=== PATIENT | female | born 1945 | race Caucasian/White ===

== ENCOUNTER 2016-05-31 20:00 | Inpatient (IN) | payer MEDICARE, OTHER ==
[~2016-05-31] VITALS: Ht 152.4 cm; Wt 58.0 kg
[2016-05-31] MEDS ORDERED: SOD CHLORIDE 0.9% 500 ML IV STA (20:53)
[2016-05-31 21:30] LABS: ADD SCAN DIFF NO
[2016-05-31 21:32] LABS: BASOPHILS % 0.3 % (0.0-2.0); EOSINOPHILS # 0.1 10^3/ul (0.0-0.5); EOSINOPHILS % 0.9 % (0.0-7.0); HEMATOCRIT 30.7 % (37.0-47.0); HEMOGLOBIN 9.9 g/dl (12.0-16.0); LYMPHOCYTES # 1.3 10^3/ul (0.8-2.9); LYMPHOCYTES % 17.8 % (15.0-51.0); MEAN CORPUSCULAR HEMOGLOBIN 25.5 pg (29.0-33.0); MEAN CORPUSCULAR HGB CONC 32.2 g/dl (32.0-37.0); MEAN CORPUSCULAR VOLUME 79.1 fl (82.0-101.0); MEAN PLATELET VOLUME 9.6 fl (7.4-10.4); MONOCYTE # 0.5 10^3/ul (0.3-0.9); MONOCYTES % 6.9 % (0.0-11.0); NEUTROPHIL # 5.4 10^3/ul (1.6-7.5); NEUTROPHILS % 73.4 % (39.0-77.0); PLATELET COUNT 320 10^3/UL (140-415); RED BLOOD COUNT 3.88 10^6/ul (4.20-5.40); RED CELL DISTRIBUTION WIDTH 14.3 % (11.5-14.5); WHITE BLOOD COUNT 7.4 10^3/ul (4.8-10.8)
--- NOTE | 2016-05-31 21:33 | ERD ---
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 The patient presents with dysuria urgency and frequency. She also describes abdominal cramping for approximately greater than 1 month. She states that she was diagnosed with diverticulitis and [place] but not given antibiotics. She has been given a stool softener. Patient describes persistence of symptoms. She denies any fevers, no hematemesis, no melena. Abdominal cramping is moderate and persistent. She still describes constipation. ROS All systems reviewed and are negative except as per history of present illness. Medications Home Meds Active Scripts Magnesium Citrate* (Magnesium Citrate*) 296 Ml Solution, 296 ML PO ONCE Y for CONSTIPATION, #1 BOTTLE Prov:ODETTE DAMON MD 05/31/16 Cephalexin* (Keflex*) 500 Mg Capsule, 500 MG PO QID for 7 Days, CAP Prov:ODETTE DAMON MD 05/31/16 PMhx/Soc Medical and Surgical Hx: pt denies Medical Hx, pt denies Surgical Hx History of Surgery: No Anesthesia Reaction: No Hx Neurological Disorder: No Hx Respiratory Disorders: No Hx Alcohol Use: No Hx Substance Use: No Hx Tobacco Use: No Smoking Status: Never smoker FmHx Family History: No diabetes Physical Exam Vitals Vital Signs Date Time Temp Pulse Resp B/P Pulse Ox O2 Delivery O2 Flow Rate FiO2 05/31/16 20:15 99.8 88 18 149/68 100 Physical Exam General: Well developed, well nourished, no acute distress Head: Normocephalic, atraumatic. Eyes: Pupils equally reactive, EOM intact ENT: Moist mucous membranes Neck: Supple, no lymphadenopathy Respiratory: Lungs clear bilaterally, no distress Cardiovascular: RRR, no murmurs, rubs, or gallops Abdominal: Soft, left lower quadrant tenderness to palpation without rebound or guarding, no pulsatile mass : Deferred MSK: No edema, no unilateral swelling, 5/5 strength Neurologic: Alert and oriented, moving all extremities, normal speech, no focal weakness, no cerebellar signs Skin: No rash Psych: Normal mood Result Diagram: 05/31/16210605/31/162106 Results 24 hrs Laboratory Tests Test 05/31/16 21:07 05/31/16 21:09 White Blood Count 7.410^3/ul Red Blood Count 3.8810^6/ul Hemoglobin 9.9g/dl Hematocrit 30.7% Mean Corpuscular Volume 79.1fl Mean Corpuscular Hemoglobin 25.5pg Mean Corpuscular Hemoglobin Concent 32.2g/dl Red Cell Distribution Width 14.3% Platelet Count 92239^3/UL Mean Platelet Volume 9.6fl Neutrophils % 73.4% Lymphocytes % 17.8% Monocytes % 6.9% Eosinophils % 0.9% Basophils % 0.3% Nucleated Red Blood Cells % 0.0/100WBC Neutrophils # 5.410^3/ul Lymphocytes # 1.310^3/ul Monocytes # 0.510^3/ul Eosinophils # 0.110^3/ul Basophils # 0.010^3/ul Nucleated Red Blood Cells # 0.010^3/ul Sodium Level 138mmol/L Potassium Level 3.9mmol/L Chloride Level 100mmol/L Carbon Dioxide Level 25mmol/L Anion Gap 17 Blood Urea Nitrogen 13mg/dl Creatinine 0.63mg/dl Glucose Level 248mg/dl Calcium Level 8.9mg/dl Total Bilirubin 0.2mg/dl Direct Bilirubin 0.00mg/dl Indirect Bilirubin 0.2mg/dl Aspartate Amino Transf (AST/SGOT) 15IU/L Alanine Aminotransferase (ALT/SGPT) 16IU/L Alkaline Phosphatase 127IU/L Total Protein 8.0g/dl Albumin 3.8g/dl Globulin 4.20g/dl Albumin/Globulin Ratio 0.90 Lipase 116U/L Urine Color LT. YELLOW Urine Clarity CLEAR Urine pH 6.0 Urine Specific [place] <=1.005 Urine Ketones NEGATIVE Urine Nitrite NEGATIVE Urine Bilirubin NEGATIVE Urine Urobilinogen 0.2 E.U./dL Urine Leukocyte Esterase 1+ Urine Microscopic RBC 0-2/HPF Urine Microscopic WBC 2-5/HPF Urine Squamous Epithelial Cells RARE Urine Bacteria RARE Urine Hemoglobin NEGATIVE Urine Glucose NEGATIVE% Urine Total Protein NEGATIVE Current Medications Medications (Trade) Dose Ordered Sig/Staci Route PRN Reason Start Time Stop Time Status Last Admin Dose Admin Sodium Chloride (NS) 500 ml @ 500 mls/hr Q1H STAT IV 05/31/16 20:53 05/31/16 21:52 DC 05/31/16 21:09 Procedures/MDM EKG, MONITORS, & DIAGNOSTIC IMAGING: CT abdomen and pelvis: Pending LAB INTERPRETATION: Anemia, no significant leukocytosis, borderline UTI MEDICAL DECISION MAKING: The patient presents with signs and symptoms consistent with UTI and possible constipation. However her clinical exam does have evidence of left lower quadrant tenderness with concern for possible diverticulitis that has not been treated with antibiotics. Patient given her age would benefit from CT imaging of the abdomen and pelvis to rule out acute process. Low concern for perforation or abscess. ER COURSE: Borderline urinary tract infection. Given the patient's symptoms initiation of Keflex would be reasonable. The patient's CT imaging is pending at the time of signout. No significant leukocytosis. I doubt acute diverticulitis though not impossible. The patient will be endorsed to the oncoming provider. If negative CT the patient can be discharged with Keflex. If the CT shows evidence of uncomplicated diverticulitis and initiation of ciprofloxacin and Flagyl will be reasonable. I kept the patient and/or family informed of laboratory and diagnostic imaging results throughout the emergency room course. DISPOSITION PLAN: Pending CT imaging. We discussed follow up with the patient's primary care doctor within 24 to 48 hours as needed. We also discussed return to the emergency room for worsening symptoms or worsening condition. Outpatient referral: [None required] Discharge Medications: Keflex, magnesium citrate Departure Diagnosis: Primary Impression: UTI (urinary tract infection) Urinary tract infection type: acute cystitis Hematuria presence: without hematuria Qualified Code: N30.00 - Acute cystitis without hematuria Additional Impressions: Generalized abdominal pain Constipation Constipation type: unspecified constipation type Qualified Code: K59.00 - Constipation, unspecified constipation type Condition: Stable ODETTE DAMON MD May 31, 2016 21:33
[2016-05-31 21:35] LABS: ADD UMIC YES; URINE BILIRUBIN (Dip) NEGATIVE (NEGATIVE); URINE BLOOD (Dip) NEGATIVE (NEGATIVE); URINE COLOR LT. YELLOW (YELLOW); URINE GLUCOSE (Dip) NEGATIVE (NEGATIVE); URINE KETONES (Dip) NEGATIVE (NEGATIVE); URINE LEUKOCYTE ESTERASE (Dip) 1+ (NEGATIVE); URINE NITRITE (Dip) NEGATIVE (NEGATIVE); URINE TOTAL PROTEIN (Dip) NEGATIVE (NEGATIVE); URINE UROBILINOGEN (Dip) 0.2 E.U./dL (0.1-1.0)
[2016-05-31 21:47] LABS: BACTERIA,URINE RARE; SQUAMOUS EPITHELIAL CELL,UR RARE; URINE RBCS 0-2 /HPF (0)
[2016-05-31 21:48] LABS: ALBUMIN 3.8 g/dl (3.3-4.9)
[2016-05-31 21:49] LABS: POTASSIUM 3.9 mmol/L (3.5-5.1)
[2016-05-31 21:51] LABS: ALBUMIN/GLOBULIN RATIO 0.9; BILIRUBIN,INDIRECT 0.2 mg/dl (0-1.1); BILIRUBIN,TOTAL 0.2 mg/dl (0.2-1.3); CREATININE 0.63 mg/dl (0.44-1.00)
[2016-05-31 21:52] LABS: CALCIUM 8.9 mg/dl (8.4-10.2)
[2016-05-31] MEDS ORDERED: CEPH-443 PO (22:39)
[2016-05-31] MEDS ORDERED: MAGN296S40 PO (22:40)
[2016-06-01] MEDS ORDERED: morphine 2 MG INJ IV ONE (00:30)
--- NOTE | 2016-06-01 01:51 | EN ---
Date/Time of Note Date/Time of Note DATE: 06/01/16 TIME: 01:45 ER Progress Note After calling Radiology for reading twice, finally was able to get CT scan results at 0145, The CT scan abdomen and pelvis was reviewed, patient has a perforated sigmoid colon diverticulitis, with this time I spoke to my attending physician, Dr. Coe, will admit patient to the hospital for further management and treatment, possible surgical intervention. At this time, patient is stable, pain is controlled. Patient will be transferred to ER [address] abd and Pelvis without Contrast: Read by , radiology Impression: #1. Perforated sigmoid colon diverticulitis. There is a 4.9 cm irregular fluid and air collection abutting the superior sigmoid colon in the inflamed region, extending superiorly into the lower abdominal retroperitoneum, suspicion for an abscess #2 moderate sigmoid colon diverticulosis. #3 mild to moderate bilateral hydroureteronephrosis down to the pelvic inlet,, where there are diffuse inflammatory changes adjacent to the ureters. No obstructing stone or mass is identified. #3 nonspecific 2.3 cm soft tissue density structure at the esophagogastric junction. It isn't clear if this represents a small fluid- filled hiatal hernia, the sequela of prior Mona fundoplication, or distal esophageal mass. This could be rather further evaluated with esophagoscopy or a fluoroscopic esophagram, as clinically warranted. LORE QUINONEZ NP Jun 01, 2016 01:51
[2016-06-01] MEDS ORDERED: metroNIDAZOLE 500 MG/NS (PMX) 100 ML IVPB STA (02:12)
[2016-06-01] MEDS ORDERED: PIPER-TAZO 3.375 GM IV (PMX) 100 ML IVPB STA (02:12)
[2016-06-01 02:56] VITALS: TEMP 99.6
[2016-06-01 03:47] VITALS: Ht 152.4 cm; Wt 58.0 kg
[2016-06-01 03:56] VITALS: BP 147/68; RESP 18
[2016-06-01] MEDS ORDERED: ONDANSETRON 4 MG INJ IV PRN (04:30)
[2016-06-01] MEDS ORDERED: morphine 4 MG/ML VIAL IV PRN (04:30)
[2016-06-01] MEDS ORDERED: DEXTROSE 5%-0.45% NACL 1,000 ML IV SCH (04:30)
[2016-06-01] MEDS: PIPER-TAZO 3.375 GM IV (PMX) 100 ML IVPB SCH ×4 (05:36→23:21)
--- NOTE | 2016-06-01 06:46 | HP ---
DATE OF ADMISSION: 06/01/2016 HISTORY OF PRESENT ILLNESS: The patient is a 70-year-old female with a history of left breast cance r status post mastectomy and chemo 25 years ago who presented to the emergency department with painf ul urination, constipation, and abdominal pain. Her abdominal pain has been going on for over 3 wee ks. Her urinary symptoms have been going on for 3 to 4 days. She was diagnosed with diverticulitis in [place], but she was not treated with antibiotics. When she presented to the ER, blood pressure was 149/68, heart rate 88, respiratory rate 18, tempera ture 99.8, oxygen saturation 100% on room air. Laboratory value shows hemoglobin of 9.9 with an MCV of 79, glucose 248. Otherwise, CBC and CMP within acceptable range. CT abdomen and pelvis showed perforated sigmoid colonic diverticulitis and irregular fluid and/or air collection suspicious for a bscess. Also noted was nonspecific 2.3 cm soft tissue density structure at esophagogastric junction representing either small fluid-filled hiatal hernia, sequelae of prior Mona fundoplication, or d istal esophageal mass. The on-call surgeon, Dr. Fowler, is aware of the patient's perforated divert iculitis and abscess findings. REVIEW OF SYSTEMS: A 12-point review was performed and negative except as mentioned in HPI. PAST MEDICAL HISTORY: As per HPI. PAST SURGICAL HISTORY: As per HPI. SOCIAL HISTORY: Denied a history of tobacco, alcohol, or illicit drug use. ALLERGIES: NO KNOWN DRUG ALLERGIES. HOME MEDICATIONS: 1. Keflex. 2. Magnesium citrate. PHYSICAL EXAMINATION: VITAL SIGNS: Stable. GENERAL: No acute distress, answering questions appropriately through homebound teacher. HEENT: No obvious head deformity. Pupils are reactive to light. Extraocular muscles intact. CARDIOVASCULAR: Regular rate and rhythm. No extra sounds. LUNGS: Clear. ABDOMEN: Soft. There is tenderness mainly in the left lower quadrant region. No rigidity. No maverick ound tenderness. EXTREMITIES: No edema. NEUROLOGIC: No focal deficits. LABORATORY DATA: Pertinent positives as mentioned above in the HPI. IMAGING: CT abdomen and pelvis with results as mentioned in the HPI. IMPRESSION: 1. Perforated sigmoid diverticulitis with abscess formation. 2. Abdominal pain, secondary to above. 3. Dysuria, likely secondary to urinary tract infection. 4. History of left breast carcinoma status post mastectomy and chemo. 5. Hyperglycemia, likely undiagnosed diabetes. 6. Microcytic anemia. We will evaluate for iron deficiency. 7. Nonspecific soft tissue density at the esophagogastric junction. PLAN: We will keep n.p.o. with IV fluid. She will be placed on Zosyn. We will follow up culture r esults. Her dysuria is likely secondary to urinary tract infection. At this point, the Zosyn will also address this. We will send urine culture. We will provide pain medication and antiemetics as needed. Currently, she is awaiting surgical evaluation. We will send A1c given presentation of hyp erglycemia. As far as the nonspecific density that was noted on the esophagogastric junction, we wi ll order esophagoscopy or fluoroscopic encephalogram as clinically warranted. We will check ferriti n and iron profile to work up microcytic anemia. We will not send FOBT at this time given the resul t if positive will be unreliable given her diverticulitis. Further workup and management per clinical course. Dictated By: ZAYNAB WILLIAM/ELFEGO Conf#: [id number] DID#: [id number]
--- NOTE | 2016-06-01 07:32 | RADRPT ---
PROCEDURE: CT Abdomen and Pelvis without contrast. CLINICAL INDICATION: Pelvic pain. TECHNIQUE: A CT scan of the abdomen and pelvis was performed without intravenous contrast. Min l and sagittal reformatted images were generated. Images were reviewed on a high-resolution PACS wor kstation. CTDIvol: 7.21 mGy. DLP: 373.54 mGy-cm. One or more of the following dose reduction techniques were used: - Automated exposure control. - Adjustment of the mA and/or kV according to patient size. - Use of iterative reconstruction technique. COMPARISON: None. FINDINGS: There is a calcified granuloma in the lingula. Evaluation of the abdominal and pelvic viscera is limited by the lack of oral and intravenous contra st. The liver is unremarkable. The gallbladder is normal in appearance. The common bile duct is not dila phillip. The spleen is not enlarged. No pancreatic lesion is identified and there is no pancreatic ducta l dilatation. The adrenal glands are unremarkable. The kidneys are normal in size. There is no perinephric fat stranding. There is mild to moderate germán ateral hydroureteronephrosis down to the pelvic inlet, where there are diffuse inflammatory changes adjacent to the ureters. No obstructing stone or mass is identified. There is a nonspecific 2.0 x 2.3 cm soft tissue density structure at the esophagogastric region. The small and large bowel are normal in caliber. There is moderate descending and sigmoid colon diverti culosis. There is wall thickening and extensive pericolonic inflamation along the mid sigmoid colon, consistent with diverticulitis. There is a 2.8 x 4.1 x 4.9 cm irregular fluid and air collection ab utting the superior sigmoid colon in the inflamed region, extending superiorly into the lower abdomi nal retroperitoneum, suspicious for an abscess. The appendix is normal. The urinary bladder is unremarkable. The pelvic organs are within normal limits. No lymphadenopathy is identified. No ascites is identified. There are minimal arterial calcificatio ns. No suspicious osseous lesion is idenitified. IMPRESSION: 1. Perforated sigmoid colon diverticulitis. There is a 4.9 cm irregular fluid and air collection a butting the superior sigmoid colon in the inflamed region, extending superiorly into the lower abdom inal retroperitoneum, suspicious for an abscess. 2. Moderate descending sigmoid colon diverticulosis. 3. Mild to moderate bilateral hydroureteronephrosis down to the pelvic inlet, where there are diffu se inflammatory changes adjacent to the ureters. No obstructing stone or mass is identified. 4. Nonspecific 2.3 cm soft tissue density structure at the esophagogastric junction. It is unclear if this represents a small fluid-filled hiatal hernia, the sequela of prior Mona fundoplication, or a distal esophageal mass. This could be further evaluated with esophagoscopy or a fluoroscopic e sophagram, as clinically warranted. RPTAT: HTAR .Anders Lopez MD, Date Time Electronically viewed and signed by .Anders Lopez MD, on 06/01/2016 01:13 .R/
[2016-06-01 08:00] LABS: ADD SCAN DIFF NO
[2016-06-01 08:05] LABS: BASOPHILS % 0.2 % (0.0-2.0); EOSINOPHILS % 0.7 % (0.0-7.0); HEMATOCRIT 29.4 % (37.0-47.0); HEMOGLOBIN 9.3 g/dl (12.0-16.0); LYMPHOCYTES # 0.9 10^3/ul (0.8-2.9); LYMPHOCYTES % 14.9 % (15.0-51.0); MEAN CORPUSCULAR HEMOGLOBIN 25.2 pg (29.0-33.0); MEAN CORPUSCULAR HGB CONC 31.6 g/dl (32.0-37.0); MEAN CORPUSCULAR VOLUME 79.7 fl (82.0-101.0); MEAN PLATELET VOLUME 9.4 fl (7.4-10.4); MONOCYTE # 0.4 10^3/ul (0.3-0.9); MONOCYTES % 6.7 % (0.0-11.0); NEUTROPHIL # 4.5 10^3/ul (1.6-7.5); PLATELET COUNT 255 10^3/UL (140-415); RED BLOOD COUNT 3.69 10^6/ul (4.20-5.40); RED CELL DISTRIBUTION WIDTH 14.2 % (11.5-14.5); WHITE BLOOD COUNT 5.8 10^3/ul (4.8-10.8)
[2016-06-01 08:29] LABS: ALBUMIN 3.1 g/dl (3.3-4.9); POTASSIUM 3.5 mmol/L (3.5-5.1)
[2016-06-01 08:31] LABS: BILIRUBIN,INDIRECT 0.5 mg/dl (0-1.1); BILIRUBIN,TOTAL 0.5 mg/dl (0.2-1.3); CREATININE 0.6 mg/dl (0.44-1.00)
[2016-06-01 08:32] LABS: ALBUMIN/GLOBULIN RATIO 0.86; CALCIUM 8.2 mg/dl (8.4-10.2); MAGNESIUM 1.5 mg/dl (1.7-2.5); PHOSPHORUS 4.2 mg/dl (2.5-4.9); TOTAL PROTEIN 6.7 g/dl (6.1-8.1)
[2016-06-01 08:36] LABS: IRON 16 ug/dl (35-150)
[2016-06-01 08:38] LABS: INR 1.16; PROTIME 14.9 Sec (12.2-14.2); PT RATIO 1.2
[2016-06-01 08:39] LABS: PARTIAL THROMBOPLASTIN TIME 32.9 Sec (25.0-35.0)
[2016-06-01 08:45] LABS: TOTAL IRON BINDING CAPACITY 287 ug/dl (241-421)
[2016-06-01 09:03] VITALS: BP 122/60; RESP 18
[2016-06-01] MEDS ORDERED: DEXTROSE 50% 50 ML SYRINGE IV PRN ×2 (11:30)
[2016-06-01] MEDS ORDERED: GLUCAGON 1 MG INJ IM PRN (11:30)
[2016-06-01] MEDS ORDERED: GLUCOSE GEL 15 GRAM TUBE BUCCAL PRN (11:30)
[2016-06-01] MEDS ORDERED: GLUCOSE GEL 15 GRAM TUBE PO PRN ×2 (11:30)
[2016-06-01] MEDS: POLYETHYLENE GLYCOL 17 GM PACKET PO SCH (11:33)
[2016-06-01] MEDS: SOD CHLORIDE 0.9% 1,000 ML IV SCH ×2 (11:34→19:00)
[2016-06-01] MEDS ORDERED: MAGNESIUM CITRATE 300 ML BTL PO ONE (12:00)
[2016-06-01] MEDS: INSULIN ASPART [NOVOLOG] 3 ML PEN SC SCH ×3 (13:00→20:51)
[2016-06-01] MEDS: SOD FERRIC GLUC COMPLX 125 MG in SOD CHLORIDE 0.9% 100 ML IVPB SCH (13:16)
[2016-06-01] MEDS: metFORMIN 500 MG TAB PO SCH (17:55)
[2016-06-01 19:00] VITALS: BP 122/58; RESP 18
[2016-06-01] MEDS: DOCUSATE SODIUM 100 MG CAP PO SCH (20:37)
[2016-06-01] MEDS ORDERED: ACETAMINOPHEN 325 MG TAB PO PRN (22:00)
[2016-06-01] MEDS: HYDROCODONE/APAP (5/325) TAB PO PRN (22:20)
[2016-06-02] MEDS: INSULIN ASPART [NOVOLOG] 3 ML PEN SC SCH ×6 (01:04→20:34)
[2016-06-02] MEDS: SOD CHLORIDE 0.9% 1,000 ML IV SCH ×3 (01:08→18:36)
--- NOTE | 2016-06-02 03:19 | CONS ---
DATE OF ADMISSION: 06/01/2016 DATE OF CONSULTATION: 06/01/2016 HISTORY OF PRESENT ILLNESS: Ms. Chiang is a 70-year-old female who came to the emergency room at [facility] last night with some abdominal pain. She has had abdominal pain for approximat freddie 2 to 3 days. She has a history of diverticulitis and has had 3 or 4 attacks in the past. She s aid she was diagnosed with diverticulitis in [place] but she was not treated with antibiotics. There was some concern for an abscess on the CT, and I was called for consultation. PAST MEDICAL HISTORY: Left breast CA. PAST SURGICAL HISTORY: She had a left breast mastectomy 25 years ago with chemotherapy. ALLERGIES: NO KNOWN DRUG ALLERGIES. HOME MEDICATIONS: 1. Keflex. 2. Mag citrate. PHYSICAL EXAMINATION: GENERAL: She is a well-nourished, well-developed female. VITAL SIGNS: She is afebrile. Vital signs stable. CHEST: Clear to auscultation bilaterally. HEART: Regular rhythm. ABDOMEN: Soft, nondistended with some right lower quadrant tenderness. LABORATORY DATA: Reveal a white count of 6, hematocrit of 30, platelets of 255. Sodium 137, potass ium 3.5, chloride 106, CO2 24, BUN and creatinine 10 and 0.6, and a glucose of 186. A CT of her abdomen and pelvis revealed perforated sigmoid diverticulitis with a 5 cm irregular flui d air collection along the superior sigmoid colon and inflamed region extending superiorly to the lo wer retroperitoneum, suspicious for abscess, moderate descending sigmoid colon diverticulosis, mild to moderate bilateral hydroureteronephrosis down to pelvic where there are diffuse inflammator y changes adjacent to the ureters. ASSESSMENT AND PLAN: Ms. Chiang is a 70-year-old female with inflammation in the lower pelvis, p ossibly related to perforated sigmoid diverticulitis. 1. The patient is afebrile with a normal white count with minimal abdominal pain. Recommend conser vative treatment for now. Would treat with IV antibiotics and possible ID consultation pertaining t o oral antibiotics. 2. Recommend surgery in 4 to 6 weeks once diverticulitis resolves. 3. Would advance diet as tolerated. 4. Recommend clears tomorrow and then advance as tolerated. 5. The patient does not have an ileus as she is passing flatus. 6. Discharge per medicine for infectious disease. 7. Please reconsult as necessary. Dictated By: ANNETTE PITTMAN/ELFEGO Conf#: [id number] DID#: [id number]
[2016-06-02] MEDS: PIPER-TAZO 3.375 GM IV (PMX) 100 ML IVPB SCH ×3 (05:09→18:37)
[2016-06-02 05:26] LABS: ADD SCAN DIFF NO
[2016-06-02 05:48] LABS: BASOPHILS % 0.2 % (0.0-2.0); EOSINOPHILS # 0.1 10^3/ul (0.0-0.5); EOSINOPHILS % 1.8 % (0.0-7.0); HEMATOCRIT 28.2 % (37.0-47.0); HEMOGLOBIN 8.8 g/dl (12.0-16.0); MEAN CORPUSCULAR HGB CONC 31.2 g/dl (32.0-37.0); MEAN CORPUSCULAR VOLUME 80.1 fl (82.0-101.0); MEAN PLATELET VOLUME 9.6 fl (7.4-10.4); MONOCYTE # 0.5 10^3/ul (0.3-0.9); MONOCYTES % 7.7 % (0.0-11.0); NEUTROPHIL # 4.4 10^3/ul (1.6-7.5); NEUTROPHILS % 73.8 % (39.0-77.0); PLATELET COUNT 268 10^3/UL (140-415); RED BLOOD COUNT 3.52 10^6/ul (4.20-5.40); RED CELL DISTRIBUTION WIDTH 14.6 % (11.5-14.5)
[2016-06-02 06:05] LABS: POTASSIUM 3.7 mmol/L (3.5-5.1)
[2016-06-02 06:08] LABS: CALCIUM 8.2 mg/dl (8.4-10.2); CREATININE 0.54 mg/dl (0.44-1.00)
[2016-06-02 06:09] LABS: CHOL/HDL RATIO 4.3 RATIO; MAGNESIUM 2.2 mg/dl (1.7-2.5)
[2016-06-02 06:33] LABS: THYROID STIMULATING HORMONE 1.5 MIU/L (0.465-4.680)
[2016-06-02 07:38] VITALS: BP 120/58; RESP 20
[2016-06-02] MEDS: DOCUSATE SODIUM 100 MG CAP PO SCH ×2 (08:38→20:30)
[2016-06-02] MEDS: metFORMIN 500 MG TAB PO SCH ×2 (08:38→17:41)
[2016-06-02] MEDS: POLYETHYLENE GLYCOL 17 GM PACKET PO SCH (08:38)
--- NOTE | 2016-06-02 11:26 | PN ---
Date/Time of Note Date/Time of Note DATE: 06/02/16 TIME: 11:19 Assessment/Plan VTE Prophylaxis VTE Prophylaxis Intervention: ambulation, SCD's Lines/Catheters IV Catheter Type (from Nrs): Peripheral IV Urinary Cath still in place: No Assessment/Plan Assessment/Plan 1. Perforated sigmoid diverticulitis with abscess formation: minimal per surgery / med mgt Patient has had recurrent diverticulitis approximately every 6 months for the last 4 years. 2. Abdominal pain, secondary to above: much improved 3. Dysuria, likely secondary to urinary tract infection: improved 4. History of left breast carcinoma status post mastectomy and chemo. 5. DM 2 : A1C 6.8 6. Microcytic anemia 2/2 iron deficiency 7. Nonspecific soft tissue density at the esophagogastric junction: asymptomatic PLAN: appreciate surgical input / continue med mgt advance diet to full liquid and continue abx continue fiber supplementation and stool softeners Resume home hypoglycemics Continue iron supplementation Needs outpt upper endoscopy when stable and possible surgery for recurrent diverticulitis continue supportive care PROPHYLAXIS: SCDs Subjective 24 Hr Interval Summary Free Text/Dictation Patient seen and examined. feels better, had good BM x 4 yesterday, tolerating CLD but is hesitant to advance diet Exam/Review of Systems Vital Signs Vitals Vital Signs Date Time Temp Pulse Resp B/P Pulse Ox O2 Delivery O2 Flow Rate FiO2 06/02/16 07:38 97.7 62 20 120/58 99 06/01/16 02:56 Room Air Intake and Output 06/01/16 06/01/16 06/02/16 15:00 23:00 07:00 Intake Total 2110 ml 440 ml Output Total 750 ml 980 ml Balance 1360 ml -540 ml Exam Constitutional: alert, oriented Psych: anxiety Head: normocephalic Eyes: PERRL ENMT: mucosa pink and moist Neck: supple Respiratory: clear to auscultation, normal air movement Cardiovascular: regular rate and rhythm, No murmurs/extra sounds Gastrointestinal: bowel sounds, non-tender, soft Extremities: No edema Neurological: nl mental status, nl speech Results Result Diagram: 06/02/16 0343 06/02/16 0343 Results 24 hrs Laboratory Tests Test 06/01/16 13:19 06/01/16 17:50 06/01/16 20:38 06/02/16 01:01 Bedside Glucose 160 144 150 187 Test 06/02/16 03:43 06/02/16 05:08 06/02/16 08:30 White Blood Count 6.0 Red Blood Count 3.52 L Hemoglobin 8.8 L Hematocrit 28.2 L Mean Corpuscular Volume 80.1 L Mean Corpuscular Hemoglobin 25.0 L Mean Corpuscular Hemoglobin Concent 31.2 L Red Cell Distribution Width 14.6 H Platelet Count 268 Mean Platelet Volume 9.6 Neutrophils % 73.8 Lymphocytes % 16.0 Monocytes % 7.7 Eosinophils % 1.8 Basophils % 0.2 Nucleated Red Blood Cells % 0.0 Neutrophils # 4.4 Lymphocytes # 1.0 Monocytes # 0.5 Eosinophils # 0.1 Basophils # 0.0 Nucleated Red Blood Cells # 0.0 Sodium Level 139 Potassium Level 3.7 Chloride Level 109 Carbon Dioxide Level 25 Anion Gap 9 Blood Urea Nitrogen 8 Creatinine 0.54 Glucose Level 133 # Calcium Level 8.2 L Magnesium Level 2.2 Triglycerides Level 105 Cholesterol Level 121 LDL Cholesterol, Calculated 72 HDL Cholesterol 28 L Cholesterol/HDL Ratio 4.3 Thyroid Stimulating Hormone (TSH) 1.500 Bedside Glucose 137 127 Medications Medications Current Medications Piperacillin Sod/ Tazobactam Sod (Zosyn 3.375gm/ 100 ml (Pmx)) 100 ml @ 200 mls /hr Q6 IVPB Last administered on 06/02/16 05:09; Admin Dose 200 MLS/HR; Start 06/01/16 at 06:00 Morphine Sulfate (morphine) 4 mg Q4H PRN IV PAIN LEVEL 6-10; Start 06/01/16 at 04:30 Ondansetron HCl (Zofran Inj) 4 mg Q4H PRN IV NAUSEA AND/OR VOMITING; Start 06/01 at 04:30 Polyethylene Glycol (Miralax) 17 gm DAILY PO Last administered on 06/02/16 08: 38; Admin Dose 17 GM; Start 06/01/16 at 12:00 Docusate Sodium 100 mg 100 mg BID PO Last administered on 06/02/16 08:38; Admin Dose 100 MG; Start 06/01/16 at 21:00 Ferric Sodium Gluconate Complex 125 mg/Sodium Chloride 110 ml @ 100 mls/hr Q24H IVPB Last administered on 06/01/16 13:16; Admin Dose 100 MLS/HR; Start 06/01/16 at 13:00; Stop 06/03/16 at 14:05 Sodium Chloride (NS) 1,000 ml @ 125 mls/hr Q8H IV Last administered on 01:08; Admin Dose 125 MLS/HR; Start 06/01/16 at 11:00 Insulin Aspart (Novolog Insulin Pen) NOVOLOG *MILD* ALGORI... Q4 SC Last administered on 06/02/16 01:04; Admin Dose 2 UNIT; Start 06/01/16 at 13:00 Miscellaneous Information 1 ea NOTE XX ; Start 06/01/16 at 11:30 Glucose (Glutose) 15 gm Q15M PRN PO DECREASED GLUCOSE; Start 06/01/16 at 11:30 Glucose (Glutose) 22.5 gm Q15M PRN PO DECREASED GLUCOSE; Start 06/01/16 at 11:30 Dextrose (D50w Syringe) 25 ml Q15M PRN IV DECREASED GLUCOSE; Start 06/01/16 at 11:30 Dextrose (D50w Syringe) 50 ml Q15M PRN IV DECREASED GLUCOSE; Start 06/01/16 at 11:30 Glucagon (Glucagen) 1 mg Q15M PRN IM DECREASED GLUCOSE; Start 06/01/16 at 11:30 Glucose (Glutose) 15 gm Q15M PRN BUCCAL DECREASED GLUCOSE; Start 06/01/16 at 11: 30 Acetaminophen/ Hydrocodone Bitart (Orion (5/325)) 1 tab Q4H PRN PO PAIN LEVEL 4 -6; Start 06/01/16 at 22:00 Acetaminophen/ Hydrocodone Bitart (Orion (5/325)) 2 tab Q4H PRN PO PAIN LEVEL 7 -10 Last administered on 06/01/16 22:20; Admin Dose 2 TAB; Start 06/01/16 at 22: 00 Acetaminophen (Tylenol Tab) 650 mg Q4H PRN PO PAIN AND OR ELEVATED TEMP; Start 06/01/16 at 22:00 DERIC MONTAGUE Jun 02, 2016 11:26
[2016-06-02] MEDS: PANTOPRAZOLE (EC) 40 MG TAB PO SCH (12:53)
[2016-06-02] MEDS: SOD FERRIC GLUC COMPLX 125 MG in SOD CHLORIDE 0.9% 100 ML IVPB SCH (14:28)
--- NOTE | 2016-06-02 14:29 | CONS ---
Date/Time of Note Date/Time of Note DATE: 06/02/16 TIME: 13:56 Assessment/Plan Assessment/Plan Additional Assessment/Plan Assessment Abdominal pain improved Perforated sigmoid diverticulitis Anemia Hemoglobin 8 Iron deficiency vs chronic vs tumors vs others Soft tissue density at esophagogastric junction CT abdomen pelvis 1. Perforated sigmoid colon diverticulitis. There is a 4.9 cm irregular fluid and air collection abutting the superior sigmoid colon in the inflamed , region extending superiorly into the lower abdominal retroperitoneum, suspicious for an abscess Moderate descending sigmoid colon 2 Mild to moderate bilateral hydroureteronephrosis down to the pelvic inlet, where there are diffuse inflammatory changes adjacent to the ureters No obstructing mass or lesion identified 3 Nonspecific 2.3 cm soft tissue density structure at the esophagogastric junction. It is unclear if this represents a small fluid- filled hiatal hernia , the sequela of prior Mona fundoplication, or a distal esophageal mass. This could be further evaluated with esophagoscopy or a fluoroscopic esophagram, as clinically warranted. Dysuria History of Breast cancer S/P mastectomy and chemotherapy 27 years PLAN: continue present management monitor hemoglobin and hematocrit Q 6 EGD once patient is stable risks and benefits explained to family agreed with plan procedure soft diet Consultation Date/Type/Reason Admit Date/Time Jun 01, 2016 at 02:14 Type of Consultation: Gastroenterology Reason for Consultation Gastri soft tissue mass Referring Provider: DERIC MONTAGUE Hx of Present Illness 70 y/o female with history of mastectomy secondary to left breast ca,underwent chemotherapy 27 years ago,history of diverticulosis. She had colonoscopy October 2015 with findings of diverticulosis,EGD at [facility] last year with normal findings.She presented at the er with hypogastric pain on and off 3 weeks duration associated with urinary frequency and urgency.Denies any nausea , vomiting , hematemesis nor hematochezia. CT abdomen pelvis revealed 1. Perforated sigmoid colon diverticulitis. There is a 4.9 cm irregular fluid and air collection abutting the superior sigmoid colon in the inflamed region, extending superiorly into the lower abdominal retroperitoneum, suspicious for an abscess. Moderate descending sigmoid colon diverticulosis. . Mild to moderate bilateral hydroureteronephrosis down to the pelvic inlet, where there are diffuse inflammatory changes adjacent to the ureters. No obstructing stone or mass is identified. Nonspecific 2.3 cm soft tissue density structure at the esophagogastric junction. It is unclear if this represents a small fluid-filled hiatal hernia, the sequela of prior Mona fundoplication, or a distal esophageal mass. This could be further evaluated with esophagoscopy or a fluoroscopic esophagram, as clinically warranted. Patient is referred for evaluation of esophageal mass. Patient claims marked improvement of abdominal pain,denies any dysphagia, nausea or vomiting, patient is afebrile,on clear liquid diet,Patient was evaluated by surgeon configuration specialist who recommended conservative management . Constitutional: no complaints Eyes: no complaints ENT: no complaints Respiratory: no complaints Cardiovascular: no complaints Gastrointestinal: flatus, pain, passing stool, No blood, No nausea, No vomiting Genitourinary: dysuria, no complaints Musculoskeletal: no complaints Skin: no complaints Neurologic: no complaints Endocrine: no complaints Lymphatic: no complaints Psychological: anxiety Immunologic: no complaints Past Medical History Medical History: diverticulitis, other (left breast cancer) Past Surgical History Past Surgical Hx: other (mastectomy left breast) Family History Significant Family History: no pertinent family hx Social History Alcohol Use: none Smoking Status: Never smoker Drug Use: none Exam/Review of Systems Vital Signs Vitals Vital Signs Date Time Temp Pulse Resp B/P Pulse Ox O2 Delivery O2 Flow Rate FiO2 06/02/16 07:38 97.7 62 20 120/58 99 06/01/16 02:56 Room Air Intake and Output 06/01/16 06/01/16 06/02/16 15:00 23:00 07:00 Intake Total 2110 ml 440 ml Output Total 750 ml 980 ml Balance 1360 ml -540 ml Exam Constitutional: alert, oriented, well developed Psych: nl mood/affect Head: atraumatic, normocephalic Eyes: PERRL, nl conjunctiva, nl lids, nl sclera ENMT: nl external ears & nose Neck: non-tender, supple Respiratory: clear to auscultation, normal air movement Cardiovascular: nl pulses, regular rate and rhythm Gastrointestinal: bowel sounds, nl liver, spleen, rebound or guarding (mild rebound left lower quadrant), soft, tender (righ and lower quadrant) Musculoskeletal: nl extremities to inspection, nl gait and stance Extremities: normal pulses Neurological: [employer]ATIONS [employer] II-XII intact, nl mental status, nl speech, nl strength Skin: nl turgor, No rash or lesions Lymph: nl lymph nodes Results Result Diagram: 06/02/16 0343 06/02/16 0343 Results 24 hrs Laboratory Tests Test 06/01/16 17:50 06/01/16 20:38 06/02/16 01:01 06/02/16 03:43 Bedside Glucose 144 150 187 White Blood Count 6.0 Red Blood Count 3.52 L Hemoglobin 8.8 L Hematocrit 28.2 L Mean Corpuscular Volume 80.1 L Mean Corpuscular Hemoglobin 25.0 L Mean Corpuscular Hemoglobin Concent 31.2 L Red Cell Distribution Width 14.6 H Platelet Count 268 Mean Platelet Volume 9.6 Neutrophils % 73.8 Lymphocytes % 16.0 Monocytes % 7.7 Eosinophils % 1.8 Basophils % 0.2 Nucleated Red Blood Cells % 0.0 Neutrophils # 4.4 Lymphocytes # 1.0 Monocytes # 0.5 Eosinophils # 0.1 Basophils # 0.0 Nucleated Red Blood Cells # 0.0 Sodium Level 139 Potassium Level 3.7 Chloride Level 109 Carbon Dioxide Level 25 Anion Gap 9 Blood Urea Nitrogen 8 Creatinine 0.54 Glucose Level 133 # Calcium Level 8.2 L Magnesium Level 2.2 Triglycerides Level 105 Cholesterol Level 121 LDL Cholesterol, Calculated 72 HDL Cholesterol 28 L Cholesterol/HDL Ratio 4.3 Thyroid Stimulating Hormone (TSH) 1.500 Test 06/02/16 05:08 06/02/16 08:30 06/02/16 12:34 Bedside Glucose 137 127 130 Medications Medications Current Medications Piperacillin Sod/ Tazobactam Sod (Zosyn 3.375gm/ 100 ml (Pmx)) 100 ml @ 200 mls /hr Q6 IVPB Last administered on 06/02/16 12:53; Admin Dose 200 MLS/HR; Start 06/01/16 at 06:00 Morphine Sulfate (morphine) 4 mg Q4H PRN IV PAIN LEVEL 6-10; Start 06/01/16 at 04:30 Ondansetron HCl (Zofran Inj) 4 mg Q4H PRN IV NAUSEA AND/OR VOMITING; Start 06/01 at 04:30 Polyethylene Glycol (Miralax) 17 gm DAILY PO Last administered on 06/02/16 08: 38; Admin Dose 17 GM; Start 06/01/16 at 12:00 Docusate Sodium 100 mg 100 mg BID PO Last administered on 06/02/16 08:38; Admin Dose 100 MG; Start 06/01/16 at 21:00 Ferric Sodium Gluconate Complex 125 mg/Sodium Chloride 110 ml @ 100 mls/hr Q24H IVPB Last administered on 06/01/16 13:16; Admin Dose 100 MLS/HR; Start 06/01/16 at 13:00; Stop 06/03/16 at 14:05 Sodium Chloride (NS) 1,000 ml @ 125 mls/hr Q8H IV Last administered on 11:00; Admin Dose 125 MLS/HR; Start 06/01/16 at 11:00 Insulin Aspart (Novolog Insulin Pen) NOVOLOG *MILD* ALGORI... Q4 SC Last administered on 06/02/16 01:04; Admin Dose 2 UNIT; Start 06/01/16 at 13:00 Miscellaneous Information 1 ea NOTE XX ; Start 06/01/16 at 11:30 Glucose (Glutose) 15 gm Q15M PRN PO DECREASED GLUCOSE; Start 06/01/16 at 11:30 Glucose (Glutose) 22.5 gm Q15M PRN PO DECREASED GLUCOSE; Start 06/01/16 at 11:30 Dextrose (D50w Syringe) 25 ml Q15M PRN IV DECREASED GLUCOSE; Start 06/01/16 at 11:30 Dextrose (D50w Syringe) 50 ml Q15M PRN IV DECREASED GLUCOSE; Start 06/01/16 at 11:30 Glucagon (Glucagen) 1 mg Q15M PRN IM DECREASED GLUCOSE; Start 06/01/16 at 11:30 Glucose (Glutose) 15 gm Q15M PRN BUCCAL DECREASED GLUCOSE; Start 06/01/16 at 11: 30 Acetaminophen/ Hydrocodone Bitart ([place] (5/325)) 1 tab Q4H PRN PO PAIN LEVEL 4 -6; Start 06/01/16 at 22:00 Acetaminophen/ Hydrocodone Bitart ([place] (5/325)) 2 tab Q4H PRN PO PAIN LEVEL 7 -10 Last administered on 06/01/16 22:20; Admin Dose 2 TAB; Start 06/01/16 at 22: 00 Acetaminophen (Tylenol Tab) 650 mg Q4H PRN PO PAIN AND OR ELEVATED TEMP; Start 06/01/16 at 22:00 Pantoprazole (Protonix Tab) 40 mg DAILY@06 PO Last administered on 4/4/17at 12: 53; Admin Dose 40 MG; Start 06/02/16 at 12:00 JOSÉ MIGUEL BRUNO MD Jun 02, 2016 14:08
[2016-06-02] MEDS: HYDROCODONE/APAP (5/325) TAB PO PRN (20:29)
[2016-06-03] MEDS: PIPER-TAZO 3.375 GM IV (PMX) 100 ML IVPB SCH ×5 (00:20→23:29)
[2016-06-03] MEDS: INSULIN ASPART [NOVOLOG] 3 ML PEN SC SCH ×6 (01:00→20:36)
[2016-06-03 05:11] LABS: ADD SCAN DIFF NO
[2016-06-03 05:19] LABS: BASOPHILS % 0.2 % (0.0-2.0); EOSINOPHILS # 0.1 10^3/ul (0.0-0.5); EOSINOPHILS % 3.3 % (0.0-7.0); HEMOGLOBIN 8.7 g/dl (12.0-16.0); LYMPHOCYTES % 22.9 % (15.0-51.0); MEAN CORPUSCULAR HEMOGLOBIN 25.4 pg (29.0-33.0); MEAN CORPUSCULAR HGB CONC 31.1 g/dl (32.0-37.0); MEAN CORPUSCULAR VOLUME 81.6 fl (82.0-101.0); MEAN PLATELET VOLUME 9.5 fl (7.4-10.4); MONOCYTE # 0.3 10^3/ul (0.3-0.9); MONOCYTES % 7.4 % (0.0-11.0); NEUTROPHIL # 2.8 10^3/ul (1.6-7.5); NEUTROPHILS % 65.5 % (39.0-77.0); PLATELET COUNT 274 10^3/UL (140-415); RED BLOOD COUNT 3.43 10^6/ul (4.20-5.40); RED CELL DISTRIBUTION WIDTH 14.5 % (11.5-14.5); WHITE BLOOD COUNT 4.2 10^3/ul (4.8-10.8)
[2016-06-03 05:26] LABS: POTASSIUM 3.4 mmol/L (3.5-5.1)
[2016-06-03 05:29] LABS: CALCIUM 8.4 mg/dl (8.4-10.2); CREATININE 0.65 mg/dl (0.44-1.00)
[2016-06-03] MEDS: PANTOPRAZOLE (EC) 40 MG TAB PO SCH (05:33)
[2016-06-03] MEDS: SOD CHLORIDE 0.9% 1,000 ML IV SCH ×3 (05:34→18:42)
[2016-06-03 07:37] VITALS: BP 134/59; RESP 18
[2016-06-03] MEDS: metFORMIN 500 MG TAB PO SCH ×2 (08:39→17:55)
[2016-06-03] MEDS: POLYETHYLENE GLYCOL 17 GM PACKET PO SCH (08:39)
[2016-06-03] MEDS: DOCUSATE SODIUM 100 MG CAP PO SCH ×2 (08:39→20:35)
[2016-06-03] MEDS: HYDROCODONE/APAP (5/325) TAB PO PRN ×2 (10:14→23:32)
--- NOTE | 2016-06-03 11:13 | PN ---
Date/Time of Note Date/Time of Note DATE: 06/03/16 TIME: 11:10 Assessment/Plan VTE Prophylaxis VTE Prophylaxis Intervention: SCD's Lines/Catheters IV [facility]ter [facility] Peripheral IV Urinary Cath still in place: No Assessment/Plan Assessment/Plan 1. Perforated sigmoid diverticulitis with abscess formation: minimal per surgery / med mgt Patient has had recurrent diverticulitis approximately every 6 months for the last 4 years. 2. Abdominal pain, secondary to above: much improved 3. Dysuria, likely secondary to urinary tract infection: improved 4. History of left breast carcinoma status post mastectomy and chemo. 5. DM 2 : A1C 6.8 6. Microcytic anemia 2/2 iron deficiency 7. Nonspecific soft tissue density at the esophagogastric junction: asymptomatic PLAN: continue fiber supplementation and stool softeners Resume home hypoglycemics Continue iron supplementation Needs outpt upper endoscopy when stable and possible surgery for recurrent diverticulitis continue supportive care PROPHYLAXIS: SCDs Subjective 24 Hr Interval Summary Free Text/Dictation hungry, pain improved Exam/Review of Systems Vital Signs Vitals Vital Signs Date Time Temp Pulse Resp B/P Pulse Ox O2 Delivery O2 Flow Rate FiO2 06/03/16 07:37 98.1 63 18 134/59 97 06/01/16 02:56 Room Air Intake and Output 06/02/16 06/02/16 06/03/16 15:00 23:00 07:00 Intake Total 100 ml 940 ml 1100 ml Balance 100 ml 940 ml 1100 ml Exam Constitutional: alert, oriented Psych: anxiety Head: normocephalic Eyes: PERRL ENMT: mucosa pink and moist Neck: supple Respiratory: clear to auscultation, normal air movement Cardiovascular: regular rate and rhythm, No murmurs/extra sounds Gastrointestinal: bowel sounds, non-tender, soft Extremities: No edema Neurological: nl mental status, nl speech Results Result Diagram: 06/03/16 0427 06/03/16 0427 Results 24 hrs Laboratory Tests Test 06/02/16 12:34 06/02/16 17:42 06/02/16 20:28 06/03/16 01:08 Bedside Glucose 130 134 212 103 Test 06/03/16 04:27 06/03/16 05:33 06/03/16 08:38 White Blood Count 4.2 #L Red Blood Count 3.43 L Hemoglobin 8.7 L Hematocrit 28.0 L Mean Corpuscular Volume 81.6 L Mean Corpuscular Hemoglobin 25.4 L Mean Corpuscular Hemoglobin Concent 31.1 L Red Cell Distribution Width 14.5 Platelet Count 274 Mean Platelet Volume 9.5 Neutrophils % 65.5 Lymphocytes % 22.9 Monocytes % 7.4 Eosinophils % 3.3 Basophils % 0.2 Nucleated Red Blood Cells % 0.0 Neutrophils # 2.8 Lymphocytes # 1.0 Monocytes # 0.3 Eosinophils # 0.1 Basophils # 0.0 Nucleated Red Blood Cells # 0.0 Sodium Level 145 H Potassium Level 3.4 L Chloride Level 108 Carbon Dioxide Level 26 Anion Gap 14 Blood Urea Nitrogen 8 Creatinine 0.65 Glucose Level 112 Calcium Level 8.4 Bedside Glucose 143 141 Medications Medications Current Medications Piperacillin Sod/ Tazobactam Sod (Zosyn 3.375gm/ 100 ml (Pmx)) 100 ml @ 200 mls /hr Q6 IVPB Last administered on 06/03/16 05:34; Admin Dose 200 MLS/HR; Start 06/01/16 at 06:00 Morphine Sulfate (morphine) 4 mg Q4H PRN IV PAIN LEVEL 6-10; Start 06/01/16 at 04:30 Ondansetron HCl (Zofran Inj) 4 mg Q4H PRN IV NAUSEA AND/OR VOMITING; Start 06/01 at 04:30 Polyethylene Glycol (Miralax) 17 gm DAILY PO Last administered on 06/03/16 08: 39; Admin Dose 17 GM; Start 06/01/16 at 12:00 Docusate Sodium 100 mg 100 mg BID PO Last administered on 06/03/16 08:39; Admin Dose 100 MG; Start 06/01/16 at 21:00 Ferric Sodium Gluconate Complex 125 mg/Sodium Chloride 110 ml @ 100 mls/hr Q24H IVPB Last administered on 06/02/16 14:28; Admin Dose 100 MLS/HR; Start 06/01/16 at 13:00; Stop 06/03/16 at 14:05 Sodium Chloride (NS) 1,000 ml @ 125 mls/hr Q8H IV Last administered on 05:34; Admin Dose 125 MLS/HR; Start 06/01/16 at 11:00 Insulin Aspart (Novolog Insulin Pen) NOVOLOG *MILD* ALGORI... Q4 SC Last administered on 06/03/16 08:42; Admin Dose 1 UNIT; Start 06/01/16 at 13:00 Miscellaneous Information 1 ea NOTE XX ; Start 06/01/16 at 11:30 Glucose (Glutose) 15 gm Q15M PRN PO DECREASED GLUCOSE; Start 06/01/16 at 11:30 Glucose (Glutose) 22.5 gm Q15M PRN PO DECREASED GLUCOSE; Start 06/01/16 at 11:30 Dextrose (D50w Syringe) 25 ml Q15M PRN IV DECREASED GLUCOSE; Start 06/01/16 at 11:30 Dextrose (D50w Syringe) 50 ml Q15M PRN IV DECREASED GLUCOSE; Start 06/01/16 at 11:30 Glucagon (Glucagen) 1 mg Q15M PRN IM DECREASED GLUCOSE; Start 06/01/16 at 11:30 Glucose (Glutose) 15 gm Q15M PRN BUCCAL DECREASED GLUCOSE; Start 06/01/16 at 11: 30 Acetaminophen/ Hydrocodone Bitart ([place] (5/325)) 1 tab Q4H PRN PO PAIN LEVEL 4 -6 Last administered on 06/03/16 10:14; Admin Dose 1 TAB; Start 06/01/16 at 22:00 Acetaminophen/ Hydrocodone Bitart ([place] (5/325)) 2 tab Q4H PRN PO PAIN LEVEL 7 -10 Last administered on 06/02/16 20:29; Admin Dose 2 TAB; Start 06/01/16 at 22: 00 Acetaminophen (Tylenol Tab) 650 mg Q4H PRN PO PAIN AND OR ELEVATED TEMP; Start 06/01/16 at 22:00 Pantoprazole (Protonix Tab) 40 mg DAILY@06 PO Last administered on 06/03/16 05: 33; Admin Dose 40 MG; Start 06/02/16 at 12:00 DERIC MONTAGUE Jun 03, 2016 11:13
[2016-06-03] MEDS: SOD FERRIC GLUC COMPLX 125 MG in SOD CHLORIDE 0.9% 100 ML IVPB SCH (14:14)
[2016-06-03 17:01] VITALS: BP 157/67; PULSE 68; RESP 13
[2016-06-03] MEDS ORDERED: LIDOCAINE 2% (SDV) 5 ML INJ ONE (17:11)
[2016-06-03] MEDS ORDERED: PROPOFOL 20 ML ONE (17:11)
[2016-06-03 17:25] VITALS: BP 141/65; PULSE 62; RESP 18
[2016-06-03] MEDS ORDERED: BARIUM SULF 2% 450 ML BTL (BERRY SMOOTHIE) PO ONE (17:30)
[2016-06-03 20:18] VITALS: BP 168/74; RESP 20
--- NOTE | 2016-06-03 20:58 | GILP ---
DATE OF PROCEDURE: PROCEDURE: Esophagogastroduodenoscopy with biopsies. BRIEF HISTORY AND INDICATIONS: The patient is being evaluated for questionable mass in the distal e sophagus. The patient is currently being treated for diverticulitis with microperforation abscess f ormation which is currently under control and improving. PREMEDICATION: Monitored anesthesia care by anesthesiologist. TECHNIQUE: After informed consent, with the patient/relatives understanding the procedure, its gabby cations, potential risks and complications, including but not limited to: allergic reaction, bleedin g, perforation or infection, and after all pertinent questions were answered to the patients satisfa ction, the patient/relatives signed witnessed informed consent. Following this, premedication was administered slowly IV push under careful cardiovascular and respi ratory monitoring with pulse oximetry, automatic blood pressure and spring inspector. Once the sedative effect was achieved the patient was place in the left lateral decubitus, the panen doscope was introduced and advanced under visual control. Careful examination of the upper gastrointestinal tract, both on insertion as well as withdrawal of the instrument disclosed the following findings: ESOPHAGUS: The distal esophagus shows mild erythema of the mucosa at the EG junction. There is no m ass or significant hiatal hernia present. The patient has no history of previous admission from the plication, and there is no endoscopic evid ence of such. STOMACH: Upon entrance to the stomach, air was insufflated, the gastric armas distended normally. T here is erythema and edema of the mucosa of a moderate degree. Biopsies were obtained to rule out H. pylori infection. Fundus, body and antrum of the stomach were carefully examined both head-on and on retroflexion, and show no abnormalities. There is no evidence of gastritis, ulcers or neoplasm. PYLORUS: The pylorus appears patent and within normal limits, with no evidence of gastric outlet ob struction. DUODENUM: The duodenal mucosa was carefully examined in the duodenal bulb as well as the second por tion of the duodenum and appears unremarkable with no evidence of duodenitis, ulcer or neoplasm. The instrument was then withdrawn, and the patient tolerated the procedure well and was transferred out of the endoscopy suite awake and in good condition to continue recovery under observation. IMPRESSION: 1. Mild distal esophagitis. 2. No mass, hiatal hernia or evidence of Mona fundoplication present. 3. Moderate gastritis, rule out Helicobacter pylori infection, biopsies obtained. PLAN: The patient will be continued on PPIs. Pathology will be reviewed as soon as available. Rep eat CT with oral and IV contrast is recommended to reassess the area of the . Dictated By: JOSÉ MIGUEL BRUNO MS/ELFEGO Conf#: [id number] DID#: [id number]
[2016-06-04] MEDS: INSULIN ASPART [NOVOLOG] 3 ML PEN SC SCH ×6 (01:00→21:00)
[2016-06-04] MEDS: SOD CHLORIDE 0.9% 1,000 ML IV SCH ×4 (03:00→19:00)
[2016-06-04 04:57] LABS: ADD SCAN DIFF NO
[2016-06-04 05:15] LABS: POTASSIUM 3.1 mmol/L (3.5-5.1)
[2016-06-04 05:18] LABS: CALCIUM 8.4 mg/dl (8.4-10.2); CREATININE 0.61 mg/dl (0.44-1.00)
[2016-06-04 05:27] LABS: BASOPHILS % 0.2 % (0.0-2.0); EOSINOPHILS # 0.1 10^3/ul (0.0-0.5); EOSINOPHILS % 2.5 % (0.0-7.0); HEMATOCRIT 27.2 % (37.0-47.0); HEMOGLOBIN 8.3 g/dl (12.0-16.0); LYMPHOCYTES # 1.1 10^3/ul (0.8-2.9); LYMPHOCYTES % 23.6 % (15.0-51.0); MEAN CORPUSCULAR HEMOGLOBIN 24.9 pg (29.0-33.0); MEAN CORPUSCULAR HGB CONC 30.5 g/dl (32.0-37.0); MEAN CORPUSCULAR VOLUME 81.7 fl (82.0-101.0); MEAN PLATELET VOLUME 9.3 fl (7.4-10.4); MONOCYTE # 0.4 10^3/ul (0.3-0.9); MONOCYTES % 7.8 % (0.0-11.0); NEUTROPHIL # 3.1 10^3/ul (1.6-7.5); NEUTROPHILS % 65.1 % (39.0-77.0); PLATELET COUNT 265 10^3/UL (140-415); RED BLOOD COUNT 3.33 10^6/ul (4.20-5.40); RED CELL DISTRIBUTION WIDTH 14.6 % (11.5-14.5); WHITE BLOOD COUNT 4.8 10^3/ul (4.8-10.8)
[2016-06-04] MEDS: PANTOPRAZOLE (EC) 40 MG TAB PO SCH (05:43)
[2016-06-04] MEDS: PIPER-TAZO 3.375 GM IV (PMX) 100 ML IVPB SCH ×4 (05:43→23:36)
[2016-06-04] MEDS: HYDROCODONE/APAP (5/325) TAB PO PRN ×3 (05:43→20:19)
[2016-06-04] MEDS ORDERED: INSULIN ASPART [NOVOLOG] 3 ML PEN SC SCH (07:20)
[2016-06-04 07:36] VITALS: BP 153/63; RESP 18
[2016-06-04] MEDS: DOCUSATE SODIUM 100 MG CAP PO SCH ×2 (09:41→20:19)
[2016-06-04] MEDS: metFORMIN 500 MG TAB PO SCH ×2 (09:41→17:55)
[2016-06-04] MEDS: POLYETHYLENE GLYCOL 17 GM PACKET PO SCH (09:41)
[2016-06-04] MEDS ORDERED: IOHEXOL 300MG/ML 150 ML BTL ONE (10:34)
[2016-06-04] MEDS ORDERED: SOD CHLORIDE 0.9% 100 ML ONE (10:34)
--- NOTE | 2016-06-04 11:44 | PN ---
DATE: 06/04/2016 SUBJECTIVE: The patient has no new complaints. She feels well. She underwent EGD yesterday and fin dings are summarized below. PHYSICAL EXAMINATION VITAL SIGNS: Temperature 98.4, pulse 67, respirations 18, blood pressure 153/63, saturations 98% on room air. GENERAL: Alert and oriented, in no distress. HEENT: Head is normocephalic. Pupils are equal and reactive. There is no scleral jaundice. Mucou s membranes moist. NECK: Supple. CHEST: Clear. CARDIOVASCULAR: S1 and S2, no murmurs. ABDOMEN: Soft, nontender, nondistended. There is no lower extremity edema. LABORATORY VALUES: Today I reviewed her CBC. She has a normal white count, hemoglobin is stable, bu t on the low side and has slowly been trending down since admission. When she came in it was 9.9 an d it is down to 8.3. She continues to have a hypochromia microcytosis. Chemistry is concerning for h ypokalemia of 3.1. Previously the patient was found to have iron deficiency and is on iron suppleme ntation and also to have dyslipidemia. Coag profile negative. There is no culture results to repo rt. IMPRESSION: 1. Perforated sigmoid diverticulitis with minimal abscess. This has been reviewed by surgery who re commends medical management. The patient is continued on broad-spectrum antibiotics. 2. Recurrent diverticulitis. The patient has had diverticulitis approximately every 6 months for t he last 4 years. She is recommended for outpatient surgical review for possible colectomy if that i s her desire. 3. Abdominal pain secondary to #1, that is completely resolved. The patient is now tolerating a so ft diet. 3. Dysuria, likely secondary to urinary tract infection. The patient is resolved on antibiotic the rapy. 4. Nonspecific soft tissue density on esophagogastric junction seen on CT scan, status post endosco py 06/03/2006 that just showed moderate gastritis. The patient is planned for repeat CT today. 5. Diabetes mellitus with A1c 6.8 with good in house control. 6. High blood pressure. Inhouse control is still suboptimal. 7. Chronic microcytic anemia secondary to iron deficiency and chronic blood loss on iron supplement ation. 8. History of left breast cancer status post mastectomy and chemo. No issues on this admission. DISPOSITION: Plan for repeat CT today. If unremarkable, possibly discharge end of the day. Dictated By: DERIC MONTAGUE MD, BA/ELFEGO Conf#: [id number] DID#: [id number]
--- NOTE | 2016-06-04 13:01 | RADRPT ---
PROCEDURE: CT Chest, Abdomen and Pelvis with intravenous contrast CLINICAL INDICATION: Esophageal mass, diverticular abscess, pain. TECHNIQUE: CT of the chest, abdomen and pelvis was performed on a multidetector scanner following the uncomplicated IV administration of 100 cc of Omnipaque 300. Coronal and sagittal images were re formatted from the axial data set. One or more of the following dose reduction techniques were used : automated exposure control, adjustment of the mA and/or kV according to patient size, use of iter ative reconstruction technique. CTDI = 8.15 mGy. DLP = 564.89 mGy-cm. COMPARISON: CT, 05/31/2016 FINDINGS: CT chest: The lungs are clear. No acute infiltrate, pleural effusion, pulmonary edema or pneumothorax is iden tified. The central tracheobronchial tree is clear. No suspicious nodule or mass lesion is identif ied. The heart size is normal without pericardial effusion. There is no thoracic aortic aneurysm or diss ection. Aortic atherosclerotic calcifications are present. No mediastinal, hilar, axillary or supr aclavicular lymphadenopathy is identified. The patient is status post left mastectomy. No gross ev idence of esophageal mass or other abnormality is seen. CT abdomen and pelvis: Liver, gallbladder, biliary tree, pancreas, spleen, and adrenal glands are unremarkable. There is m ild bilateral hydroureteronephrosis to the level of the pelvis, without evidence of urinary calculus . The stomach is grossly unremarkable. There is no abdominal aortic aneurysm or dissection. Aortic vascular calcifications are present. T here is no retroperitoneal lymphadenopathy. The tesfaye hepatis region is clear. Inflammation and multilocular gas/fluid are seen adjacent to sigmoid colon diverticula, consistent w ith diverticulitis, with diverticular perforation and abscess formation - largest loculation measure s approximately 3.3 x 2.9 cm (3-172). There is no bowel obstruction or upper abdominal free air. T he appendix is well visualized and normal. Urinary bladder, uterus and adnexa are grossly unremarka ble. No pelvic mass a or lymphadenopathy is seen. The surrounding osseous structures are remarkable for degenerative spondylosis of the spine. No ost eolytic or osteoblastic lesion is detected. IMPRESSION: 1. Sigmoid diverticulitis and multilocular diverticular abscess are again noted, grossly stable in appearance when compared to the prior CT. 2. There is mild bilateral hydroureteronephrosis to the level of the pelvis, without evidence of ur inary calculus, also grossly stable, likely indicating distal ureteral stasis secondary to pelvic in flammatory process. 3. Aortoiliac atherosclerotic calcifications are present. 4. The patient is status post left mastectomy. 5. No mass or lymphadenopathy is identified - specifically, no gross CT evidence of esophageal mass is seen. RPTAT: AA .Kenney Lopez MD, MD Date Time Electronically viewed and signed by .Kenney Lopez MD, MD on 06/04/2016 13:00 .R/
[2016-06-04 14:48] VITALS: BP 149/67; PULSE 64; RESP 20
[2016-06-04] MEDS: LISINOPRIL 20 MG TAB PO SCH (14:48)
--- NOTE | 2016-06-04 15:34 | PN ---
Date/Time of Note Date/Time of Note DATE: 06/04/16 TIME: 15:12 Assessment/Plan VTE Prophylaxis VTE Prophylaxis Intervention: SCD's Lines/Catheters IV [facility] Peripheral IV Urinary Cath still in place: No Assessment/Plan Chief Complaint/Hosp Course Problems: Assessment/Plan Assessment Abdominal pain improved Perforated sigmoid diverticulitis Anemia Hemoglobin 8.3 06/03/2016 EGD 1. Mild distal esophagitis. 2. No mass, hiatal hernia or evidence of Mona fundoplication present. 3. Moderate gastritis, rule out Helicobacter pylori infection, biopsies obtained. 06/04/16 CT Abdomen/Pelvis with contrast 1. Sigmoid diverticulitis and multilocular diverticular abscess are again noted, grossly stable in appearance when compared to the prior CT. 2. There is mild bilateral hydroureteronephrosis to the level of the pelvis, without evidence of urinary calculus, also grossly stable, likely indicating distal ureteral stasis secondary to pelvic inflammatory process. 3. Aortoiliac atherosclerotic calcifications are present. 4. The patient is status post left mastectomy. 5. No mass or lymphadenopathy is identified - specifically, no gross CT evidence of esophageal mass is seen. 06/05/16 CT Chest 1. Sigmoid diverticulitis and multilocular diverticular abscess are again noted, grossly stable in appearance when compared to the prior CT. 2. There is mild bilateral hydroureteronephrosis to the level of the pelvis, without evidence of urinary calculus, also grossly stable, likely . indicating distal ureteral stasis secondary to pelvic inflammatory process 3. Aortoiliac atherosclerotic calcifications are present. 4. The patient is status post left mastectomy. 5. No mass or lymphadenopathy is identified - specifically, no gross CT evidence of esophageal mass is seen. 05/31/16 CT abdomen pelvis 1. Perforated sigmoid colon diverticulitis. There is a 4.9 cm irregular fluid and air collection abutting the superior sigmoid colon in the inflamed , region extending superiorly into the lower abdominal retroperitoneum, suspicious for an abscess Moderate descending sigmoid colon 2 Mild to moderate bilateral hydroureteronephrosis down to the pelvic inlet, where there are diffuse inflammatory changes adjacent to the ureters No obstructing mass or lesion identified 3 Nonspecific 2.3 cm soft tissue density structure at the esophagogastric junction. It is unclear if this represents a small fluid- filled hiatal hernia , the sequela of prior Mona fundoplication, or a distal esophageal mass. This could be further evaluated with esophagoscopy or a fluoroscopic esophagram, as clinically warranted. Dysuria History of Breast cancer S/P mastectomy and chemotherapy 27 years Plan continue present management pain control Subjective 24 Hr Interval Summary Free Text/Dictation * course reviewed with rn * patient seen and examined * mild right lower quadrant pain,afebrile * 06/04/[address] * 1. Sigmoid diverticulitis and multilocular diverticular abscess are again noted, grossly stable in appearance when compared to the prior CT. 2. There is mild bilateral hydroureteronephrosis to the level of the pelvis, without evidence of urinary calculus, also grossly stable, likely indicating distal ureteral stasis secondary to pelvic inflammatory process 3. Aortoiliac atherosclerotic calcifications are present. 4. The patient is status post left mastectomy. 5. No mass or lymphadenopathy is identified - specifically, no gross CT evidence of esophageal mass is seen. 06/04/16 EGD 1. Mild distal esophagitis. 2. No mass, hiatal hernia or evidence of Mona fundoplication present. 3. Moderate gastritis, rule out Helicobacter pylori infection , biopsies obtained. 06/04/2016 CT abdomen/pelvis with contrast 1. Sigmoid diverticulitis and multilocular diverticular abscess are again noted, grossly stable in appearance when compared to the prior CT. 2. There is mild bilateral hydroureteronephrosis to the level of the pelvis, without evidence of urinary calculus, also grossly stable, likely indicating distal . ureteral stasis secondary to pelvic inflammatory process 3. Aortoiliac atherosclerotic calcifications are present. 4. The patient is status post left mastectomy. 5. No mass or lymphadenopathy is identified - specifically , no gross CT evidence of esophageal mass is seen. Exam/Review of Systems Vital Signs Vitals Vital Signs Date Time Temp Pulse Resp B/P Pulse Ox O2 Delivery O2 Flow Rate FiO2 06/04/16 14:48 64 20 149/67 06/04/16 07:36 98.4 98 06/03/16 17:25 Nasal Cannula 2.0 Intake and Output 06/03/16 06/03/16 06/04/16 15:00 23:00 07:00 Intake Total 640 ml 1800 ml 1980 ml Balance 640 ml 1800 ml 1980 ml Exam Constitutional: alert Neck: supple Respiratory: clear to auscultation, normal air movement Cardiovascular: nl pulses, regular rate and rhythm Gastrointestinal: soft, tender (minimal right lower quadrant), No rebound or guarding Musculoskeletal: nl extremities to inspection Neurological: nl mental status Results Result Diagram: 06/04/16 0446 06/04/16 0446 Results 24 hrs Laboratory Tests Test 06/03/16 18:32 06/03/16 20:35 06/04/16 04:46 06/04/16 08:09 Bedside Glucose 81 124 101 White Blood Count 4.8 Red Blood Count 3.33 L Hemoglobin 8.3 L Hematocrit 27.2 L Mean Corpuscular Volume 81.7 L Mean Corpuscular Hemoglobin 24.9 L Mean Corpuscular Hemoglobin Concent 30.5 L Red Cell Distribution Width 14.6 H Platelet Count 265 Mean Platelet Volume 9.3 Neutrophils % 65.1 Lymphocytes % 23.6 Monocytes % 7.8 Eosinophils % 2.5 Basophils % 0.2 Nucleated Red Blood Cells % 0.0 Neutrophils # 3.1 Lymphocytes # 1.1 Monocytes # 0.4 Eosinophils # 0.1 Basophils # 0.0 Nucleated Red Blood Cells # 0.0 Sodium Level 144 Potassium Level 3.1 L Chloride Level 110 Carbon Dioxide Level 25 Anion Gap 12 Blood Urea Nitrogen 4 L Creatinine 0.61 Glucose Level 98 Calcium Level 8.4 Test 06/04/16 11:55 Bedside Glucose 191 Medications Medications Current Medications Piperacillin Sod/ Tazobactam Sod (Zosyn 3.375gm/ 100 ml (Pmx)) 100 ml @ 200 mls /hr Q6 IVPB Last administered on 06/04/16 11:51; Admin Dose 200 MLS/HR; Start 06/01/16 at 06:00 Morphine Sulfate (morphine) 4 mg Q4H PRN IV PAIN LEVEL 6-10; Start 06/01/16 at 04:30 Ondansetron HCl (Zofran Inj) 4 mg Q4H PRN IV NAUSEA AND/OR VOMITING; Start 06/01 at 04:30 Polyethylene Glycol (Miralax) 17 gm DAILY PO Last administered on 06/04/16 09: 41; Admin Dose 17 GM; Start 06/01/16 at 12:00 Docusate Sodium 100 mg 100 mg BID PO Last administered on 06/04/16 09:41; Admin Dose 100 MG; Start 06/01/16 at 21:00 Sodium Chloride (NS) 1,000 ml @ 125 mls/hr Q8H IV Last administered on 18:42; Admin Dose 125 MLS/HR; Start 06/01/16 at 11:00 Miscellaneous Information 1 ea NOTE XX ; Start 06/01/16 at 11:30 Glucose (Glutose) 15 gm Q15M PRN PO DECREASED GLUCOSE; Start 06/01/16 at 11:30 Glucose (Glutose) 22.5 gm Q15M PRN PO DECREASED GLUCOSE; Start 06/01/16 at 11:30 Dextrose (D50w Syringe) 25 ml Q15M PRN IV DECREASED GLUCOSE; Start 06/01/16 at 11:30 Dextrose (D50w Syringe) 50 ml Q15M PRN IV DECREASED GLUCOSE; Start 06/01/16 at 11:30 Glucagon (Glucagen) 1 mg Q15M PRN IM DECREASED GLUCOSE; Start 06/01/16 at 11:30 Glucose (Glutose) 15 gm Q15M PRN BUCCAL DECREASED GLUCOSE; Start 06/01/16 at 11: 30 Acetaminophen/ Hydrocodone Bitart ([place] (5/325)) 1 tab Q4H PRN PO PAIN LEVEL 4 -6 Last administered on 06/04/16 14:47; Admin Dose 1 TAB; Start 06/01/16 at 22:00 Acetaminophen/ Hydrocodone Bitart ([place]roll (5/325)) 2 tab Q4H PRN PO PAIN LEVEL 7 -10 Last administered on 06/02/16 20:29; Admin Dose 2 TAB; Start 06/01/16 at 22: 00 Acetaminophen (Tylenol Tab) 650 mg Q4H PRN PO PAIN AND OR ELEVATED TEMP; Start 06/01/16 at 22:00 Pantoprazole (Protonix Tab) 40 mg DAILY@06 PO Last administered on 06/04/16 05: 43; Admin Dose 40 MG; Start 06/02/16 at 12:00 Diagnostic Test (Pha) (Accu-Chek) 1 ea 02 XX ; Start 06/05/16 at 02:00 Lisinopril (Zestril) 40 mg DAILY PO Last administered on 06/04/16 14:48; Admin Dose 40 MG; Start 06/04/16 at 13:30 JOSÉ MIGUEL BRUNO MD Jun 04, 2016 15:23
[2016-06-04 21:24] VITALS: BP 136/61; PULSE 58; RESP 18
[2016-06-05] MEDS ORDERED: ACCU-CHEK XX SCH (02:00)
[2016-06-05 05:40] LABS: ADD SCAN DIFF NO
[2016-06-05 05:50] LABS: BASOPHILS % 0.2 % (0.0-2.0); EOSINOPHILS # 0.1 10^3/ul (0.0-0.5); EOSINOPHILS % 2.5 % (0.0-7.0); HEMATOCRIT 26.6 % (37.0-47.0); HEMOGLOBIN 8.4 g/dl (12.0-16.0); LYMPHOCYTES # 1.1 10^3/ul (0.8-2.9); MEAN CORPUSCULAR HGB CONC 31.6 g/dl (32.0-37.0); MEAN CORPUSCULAR VOLUME 82.4 fl (82.0-101.0); MEAN PLATELET VOLUME 9.3 fl (7.4-10.4); MONOCYTE # 0.3 10^3/ul (0.3-0.9); MONOCYTES % 7.6 % (0.0-11.0); NEUTROPHIL # 2.8 10^3/ul (1.6-7.5); NEUTROPHILS % 63.3 % (39.0-77.0); PLATELET COUNT 263 10^3/UL (140-415); RED BLOOD COUNT 3.23 10^6/ul (4.20-5.40); RED CELL DISTRIBUTION WIDTH 14.7 % (11.5-14.5); WHITE BLOOD COUNT 4.4 10^3/ul (4.8-10.8)
[2016-06-05] MEDS: SOD CHLORIDE 0.9% 1,000 ML IV SCH ×2 (06:08→11:00)
[2016-06-05] MEDS: PANTOPRAZOLE (EC) 40 MG TAB PO SCH (06:08)
[2016-06-05] MEDS: PIPER-TAZO 3.375 GM IV (PMX) 100 ML IVPB SCH ×2 (06:08→11:20)
[2016-06-05 06:34] LABS: CREATININE 0.64 mg/dl (0.44-1.00)
[2016-06-05 06:35] LABS: CALCIUM 8.2 mg/dl (8.4-10.2)
[2016-06-05 07:04] LABS: POTASSIUM 2.9 mmol/L (3.5-5.1)
[2016-06-05] MEDS: INSULIN ASPART [NOVOLOG] 3 ML PEN SC SCH ×2 (07:50→13:00)
[2016-06-05] MEDS: metFORMIN 500 MG TAB PO SCH (07:50)
[2016-06-05 08:41] VITALS: BP_SYST 141; BP_SYST 175; BP_DIAS 61; BP_DIAS 75; RESP 18; RESP 20
[2016-06-05] MEDS: POLYETHYLENE GLYCOL 17 GM PACKET PO SCH (09:05)
[2016-06-05] MEDS: DOCUSATE SODIUM 100 MG CAP PO SCH (09:05)
[2016-06-05] MEDS: LISINOPRIL 20 MG TAB PO SCH (09:05)
[2016-06-05] MEDS ORDERED: METF500T PO (10:07)
[2016-06-05] MEDS ORDERED: LISI20TA11 PO (10:07)
[2016-06-05] MEDS ORDERED: PANT40TA4 PO (10:07)
[2016-06-05] MEDS ORDERED: DOCU-216 PO (10:07)
[2016-06-05] MEDS ORDERED: HYDR-3498 PO (10:07)
[2016-06-05] MEDS ORDERED: POLY17PO6 PO (10:07)
[2016-06-05] MEDS ORDERED: POTASSIUM CHLORIDE (SR) 20 MEQ TAB PO STA (10:14)
[2016-06-05] MEDS ORDERED: METR500T PO (10:17)
[2016-06-05] MEDS ORDERED: LEVO750T25 PO (10:17)
[2016-06-05] MEDS ORDERED: LACT1CAP43 PO (10:17)
[2016-06-05] MEDS ORDERED: POTASSIUM CHLORIDE 250 ML IVPB ONE (11:00)
[2016-06-05 13:00] VITALS: BP 176/83; PULSE 61; RESP 18
[2016-06-05 15:01] VITALS: BP 159/75; PULSE 72; RESP 18
--- NOTE | 2016-06-05 15:16 | CONS ---
Date/Time of Note Date/Time of Note DATE: 06/05/16 TIME: 15:10 Assessment/Plan Assessment/Plan Additional Assessment/Plan Perforated sigmoid diverticulitis CT Abdomen/Pelvis 06-04-16: 1. Sigmoid diverticulitis and multilocular diverticular abscess are again noted, grossly stable in appearance when compared to the prior CT. 2. Nonspecific 2.3 cm soft tissue density structure at the esophagogastric junction. It is unclear if this represents a small fluid -filled hiatal hernia, the sequela of prior Mona fundoplication, or a distal esophageal mass. This could be further evaluated with esophagoscopy or a fluoroscopic esophagram, as clinically warranted. Surgery is recommending surgical treatment of sigmoid perforation in 4 to 6 weeks once diverticulitis resolves Anemia S/p EGD 06/03/2016: 1. Mild distal esophagitis. 2. No mass, hiatal hernia or evidence of Mona fundoplication present. 3. Moderate gastritis, Gastric antrum and body type mucosa with mild superficial chronic gastritis. Negative for Helicobacter organisms. No dysplasia or intestinal metaplasia is identified. History of left breast mastectomy Status post chemotherapy and mastectomy 27 years Blood pressure precautions Further recommendations depend on clinical course Patient seen in collaboration with Dr. Borrego Consultation Date/Type/Reason Admit Date/Time Jun 01, 2016 at 02:14 Initial Consult Date Type of Consultation: Gastroenterology Referring Provider: DERIC MONTAGUE 24 HR Interval Summary Free Text/Dictation Reports less pain Tolerating diet Exam/Review of Systems Vital Signs Vitals Vital Signs Date Time Temp Pulse Resp B/P Pulse Ox O2 Delivery O2 Flow Rate FiO2 06/05/16 15:01 72 18 159/75 98 Room Air 06/05/16 13:00 98.5 06/03/16 17:25 2.0 Intake and Output 06/04/16 06/04/16 06/05/16 15:00 23:00 07:00 Intake Total 100 ml 2580 ml 1700 ml Balance 100 ml 2580 ml 1700 ml Exam Constitutional: alert, oriented, well developed Psych: nl mood/affect Head: normocephalic Eyes: EOMI, nl conjunctiva, nl lids ENMT: nl external ears & nose, nl lips & teeth, nl nasal mucosa & septum Respiratory: clear to auscultation, normal air movement Cardiovascular: regular rate and rhythm Gastrointestinal: soft, nontender Musculoskeletal: nl extremities to inspection Neurological: STORE PROMOTER II-XII intact Results Result Diagram: 06/05/16 0450 06/05/16 0450 Results 24 hrs Laboratory Tests Test 06/04/16 17:15 06/04/16 21:26 06/05/16 04:50 06/05/16 07:43 Bedside Glucose 103 193 114 White Blood Count 4.4 L Red Blood Count 3.23 L Hemoglobin 8.4 L Hematocrit 26.6 L Mean Corpuscular Volume 82.4 Mean Corpuscular Hemoglobin 26.0 L Mean Corpuscular Hemoglobin Concent 31.6 L Red Cell Distribution Width 14.7 H Platelet Count 263 Mean Platelet Volume 9.3 Neutrophils % 63.3 Lymphocytes % 25.0 Monocytes % 7.6 Eosinophils % 2.5 Basophils % 0.2 Nucleated Red Blood Cells % 0.0 Neutrophils # 2.8 Lymphocytes # 1.1 Monocytes # 0.3 Eosinophils # 0.1 Basophils # 0.0 Nucleated Red Blood Cells # 0.0 Sodium Level 146 H Potassium Level 2.9 *L Chloride Level 112 H Carbon Dioxide Level 24 Anion Gap 13 Blood Urea Nitrogen 4 L Creatinine 0.64 Glucose Level 101 Calcium Level 8.2 L Test 06/05/16 12:10 Bedside Glucose 178 Medications Medications Current Medications Piperacillin Sod/ Tazobactam Sod (Zosyn 3.375gm/ 100 ml (Pmx)) 100 ml @ 200 mls /hr Q6 IVPB Last administered on 06/05/16 11:20; Admin Dose 200 MLS/HR; Start 06/01/16 at 06:00 Morphine Sulfate (morphine) 4 mg Q4H PRN IV PAIN LEVEL 6-10; Start 06/01/16 at 04:30 Ondansetron HCl (Zofran Inj) 4 mg Q4H PRN IV NAUSEA AND/OR VOMITING; Start 06/01 at 04:30 Polyethylene Glycol (Miralax) 17 gm DAILY PO Last administered on 06/05/16 09: 05; Admin Dose 17 GM; Start 06/01/16 at 12:00 Docusate Sodium 100 mg 100 mg BID PO Last administered on 06/05/16 09:05; Admin Dose 100 MG; Start 06/01/16 at 21:00 Sodium Chloride (NS) 1,000 ml @ 125 mls/hr Q8H IV Last administered on 06:08; Admin Dose 125 MLS/HR; Start 06/01/16 at 11:00 Miscellaneous Information 1 ea NOTE XX ; Start 06/01/16 at 11:30 Glucose (Glutose) 15 gm Q15M PRN PO DECREASED GLUCOSE; Start 06/01/16 at 11:30 Glucose (Glutose) 22.5 gm Q15M PRN PO DECREASED GLUCOSE; Start 06/01/16 at 11:30 Dextrose (D50w Syringe) 25 ml Q15M PRN IV DECREASED GLUCOSE; Start 06/01/16 at 11:30 Dextrose (D50w Syringe) 50 ml Q15M PRN IV DECREASED GLUCOSE; Start 06/01/16 at 11:30 Glucagon (Glucagen) 1 mg Q15M PRN IM DECREASED GLUCOSE; Start 06/01/16 at 11:30 Glucose (Glutose) 15 gm Q15M PRN BUCCAL DECREASED GLUCOSE; Start 06/01/16 at 11: 30 Acetaminophen/ Hydrocodone Bitart ([place] (5/325)) 1 tab Q4H PRN PO PAIN LEVEL 4 -6 Last administered on 06/04/16 14:47; Admin Dose 1 TAB; Start 06/01/16 at 22:00 Acetaminophen/ Hydrocodone Bitart ([place] (5/325)) 2 tab Q4H PRN PO PAIN LEVEL 7 -10 Last administered on 06/04/16 20:19; Admin Dose 2 TAB; Start 06/01/16 at 22: 00 Acetaminophen (Tylenol Tab) 650 mg Q4H PRN PO PAIN AND OR ELEVATED TEMP; Start 06/01/16 at 22:00 Pantoprazole (Protonix Tab) 40 mg DAILY@06 PO Last administered on 06/05/16 06: 08; Admin Dose 40 MG; Start 06/02/16 at 12:00 Diagnostic Test (Pha) (Accu-Chek) 1 ea 02 XX ; Start 06/05/16 at 02:00 Lisinopril (Zestril) 40 mg DAILY PO Last administered on 06/05/16 09:05; Admin Dose 40 MG; Start 06/04/16 at 13:30 ELVIE ROGERS Jun 05, 2016 15:16
--- NOTE | 2016-06-05 15:52 | DS ---
DATE OF ADMISSION: 06/01/2016 DATE OF DISCHARGE: 06/05/2016 PRESENTING COMPLAINT: Painful urination, constipation, abdominal pain. FINAL DIAGNOSES: 1. Perforated sigmoid diverticulitis with minimal abscess. The patient has been reviewed by julianne cervantes who recommends medical management. Continue 2 weeks of broad spectrum antibiotic. 2. Recurrent diverticulitis. The patient has had diverticulitis approximately every 6 months for t he last 4 years. She is recommended for outpatient surgical review for possible colectomy that is h er desire. 3. Abdominal pain secondary to #1 now resolved tolerating a soft diet. 4. Dysuria secondary to urinary tract infection, resolved on antibiotic therapy. 5. Nonspecific soft tissue density on EGD and CT scan, status post endoscopy 06/03/2016 that showed moderate gastritis. Repeat CT scan with contrast does not show said density. 6. Diabetes mellitus with A1c of 6.8 with good control. 7. High blood pressure with good control. 8. Chronic microcytic anemia secondary to iron deficiency and chronic blood loss on iron supplement ation. 9. History of left breast cancer status post mastectomy and chemo in the remote past. CONSULTS ON THE CASE: Dr. Christ Fowler for surgery, Dr. Borrego for GI. Interventions and findin gs as summarized above. DISPOSITION: To home. ACTIVITY: Activities as tolerated. DIET: 1800 ADA, high fiber diet. DISCHARGE MEDICATIONS: 1. Colace 100 p.o. b.i.d. 2. Meldrim 1 tab q.4h. p.r.n. 3. Acidophilus, Probiotic 1 mg t.i.d. 4. Levaquin 750 daily for 14 days. 5. Lisinopril 40 daily. 6. Metformin 500 b.i.d. 7. Flagyl 500 q.8h. for 14 days. 8. Protonix 40 daily. 9. MiraLax 17 grams daily. DISCHARGE CONDITION: Stable. Dictated By: DERIC MONTAGUE MD, BA/ELFEGO Conf#: [id number] DID#: [id number]
== END 2016-06-05 17:30 | disposition home or self-care (01) | DRG 392 ==
LOC: FTE 20:00 → MS1 06-01 02:14
PROVIDERS: ADMIT Internal Medicine; ATTEND Internal Medicine
PROC: 0DB68ZX Excision of Stomach, Via Natural or Artificial Opening Endoscopic, Diagnostic (ICD-10-PCS; principal; 2016-06-03 18:00)
DX: K57.20 Diverticulitis of large intestine with perforation and abscess without bleeding (principal); E11.65 Type 2 diabetes mellitus with hyperglycemia; N39.0 Urinary tract infection, site not specified; K20.9 Esophagitis, unspecified; K29.70 Gastritis, unspecified, without bleeding; D50.9 Iron deficiency anemia, unspecified; Z85.3 Personal history of malignant neoplasm of breast; Z90.12 Acquired absence of left breast and nipple
CPT/HCPCS: 36415; 71260; 74176; 74177; 80048; 80053; 80061; 81001; 81003; 82728; 82962; 83036; 83540; 83690; 83735; 84100; 84443; 85025; 85610; 85730; 88305; 88312; 96374; 96375; J1815; J2270; J2543; J2916; J3480; J7030; J7040; J7042; Q9967